=== PATIENT | male | born 1955 | race Caucasian/White ===

== ENCOUNTER 2018-06-15 19:09 | Emergency (ER) | payer BC ==
[2018-06-15] MEDS ORDERED: Sodium Chloride 0.9% 1,000 ML IV ONE (19:24)
[2018-06-15] MEDS ORDERED: diphenhydrAMINE 50 MG/ML SDV IVPUSH ONE (19:24)
[2018-06-15] MEDS ORDERED: Famotidine 20 MG/2 ML SDV IVPUSH ONE (19:24)
--- NOTE | 2018-06-15 19:32 | EDM.PDOC ---
ED HPI GENERAL MEDICAL PROBLEM - General Chief Complaint: Allergic Reaction Stated Complaint: acute allergic reaction Time Seen by Provider: 06/15/18 19:15 Source of Information: Reports: Patient History Limitations: Reports: No Limitations - History of Present Illness INITIAL COMMENTS - FREE TEXT/NARRATIVE: 62 YO WM presents to ER with allergic reaction which began just prior to arrival. Pt reports he was outside shoveling snow and when he came inside he noticed feeling warm and developing sudden onset rash which began on the back of his neck then covering his entire body. Pt sat down and had a witnessed syncopal episode which lasted approximately 30 seconds. EMS was called and when they arrived pt had an initial blood pressure of 80's/50's. Pt was transported to ER where inital blood pressure was 90's/70's. Pt alert and oriented x 4. Pt denies shortness of breath, no chest pain, no nausea/vomiting. Pt with generalized urticarial rash with associated dizziness. Pt without complaints other then feeling itchy allover. Pt with a similar reaction in the past without syncope. Pt came to ER one other time and states his symptoms resolved on their own. Pt has not followed up with any medical doctor for this condition. Pt denies any facial droop, no weakness or numbness, no headache. Onset: Sudden Location: Reports: Generalized Severity: Severe Improves with: Reports: None Worsens with: Reports: None Associated Symptoms: Reports: Rash, Syncope. 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 Denies: Shortness of Breath Cardiovascular: Reports: Blood Pressure Problem, Lightheadedness, Syncope. Denies: Chest Pain, Palpitations Endocrine: Reports: No Symptoms GI/Abdominal: Reports: No Symptoms : Reports: No Symptoms Musculoskeletal: Reports: No Symptoms Skin: Reports: Urticaria Neurological: Reports: No Symptoms, Dizziness Psychiatric: Reports: No Symptoms Hematologic/Lymphatic: Reports: No Symptoms Immunologic: Reports: No Symptoms ED EXAM GENERAL NO PERIP PULSE - Physical Exam Exam: See Below Exam Limited By: No Limitations General Appearance: Alert, WD/WN, No Apparent Distress Head: Atraumatic, Normocephalic Neck: Normal Inspection, Supple, Non-Tender, Full Range of Motion Respiratory/Chest: No Respiratory Distress, Lungs Clear, Normal Breath Sounds, No Accessory Muscle Use, Chest Non-Tender Cardiovascular: Normal Peripheral Pulses, Regular Rate, Rhythm, No Edema, No Gallop, No JVD, No Murmur, No Rub GI/Abdominal: Normal Bowel Sounds, Soft, Non-Tender, No Organomegaly, No Distention, No Abnormal Bruit, No Mass Back Exam: Normal Inspection, Full Range of Motion, NT Extremities: Normal Inspection, Normal Range of Motion, Non-Tender, Normal Capillary Refill, No Pedal Edema Neurological: Alert, Oriented, CN II-XII Intact, Normal Cognition, Normal Gait, Normal Reflexes, No Motor/Sensory Deficits Psychiatric: Normal Affect, Normal Mood Skin Exam: Erythema, Other (generalized urticarial rash) Lymphatic: No Adenopathy EKG INTERPRETATION EKG Date: 06/15/18 Time: 19:25 Rhythm: NSR Rate (Beats/Min): 83 [place]: Normal P-Wave: Present QRS: Normal ST-T: Normal QT: Normal Comparison: NA - No Prior EKG Course - Vital Signs Last Recorded V/S: Last Vital Signs Temp 35.4 C 06/15/18 19:21 Pulse 80 06/15/18 19:21 Resp 13 06/15/18 19:21 BP 99/72 06/15/18 19:21 Pulse Ox 92 L 06/15/18 19:21 - Orders/Labs/Meds Orders: Active Orders 24 hr Category Date Time Status EKG Documentation Completion [RC] ASDIRECTED Care 06/15/18 19:25 Active Peripheral IV Care [RC] . DIRECTED Care 06/15/18 19:25 Active Sodium Chloride 0.9% [Saline Flush] Med 06/15/18 19:24 Active 10 ml FLUSH Q8HR PRN methylPREDNISolone Sod Succ [Solu-MEDROL] Med 06/16/18 19:25 Once 125 mg IVPUSH ONETIME ONE Peripheral IV Insertion Adult [OM.PC] Routine Oth 06/15/18 19:24 Ordered EKG 12 Lead [EK] Routine Ther 06/15/18 19:24 Ordered Medication Orders Methylprednisolone Sodium Succinate (Solu-Medrol) 125 mg IVPUSH ONETIME ONE Stop: 06/16/18 19:26 Sodium Chloride (Saline Flush) 10 ml FLUSH Q8HR PRN PRN Reason: keep vein open Labs: Laboratory Tests 06/15/18 06/15/18 Range/Units 19:25 19:25 WBC 14.17 H (5.00-10.00) 10^3/uL RBC 5.81 (4.50-6.00) 10^6/uL Hgb 17.6 H (13.0-17.0) g/dL Hct 51.6 (40.0-52.0) % MCV 88.8 (82.0-92.0) fL MCH 30.3 (27.0-31.0) pg MCHC 34.1 (32.0-36.0) g/dL RDW 13.6 (11.5-14.5) % Plt Count 320 (150-400) 10^3/uL MPV 9.2 (7.4-10.4) fL Immature Gran % (Auto) 0.2 (0.0-5.0) % Neut % (Auto) 44.2 L (50.0-70.0) % Lymph % (Auto) 50.2 H (20.0-40.0) % Granite % (Auto) 4.4 (2.0-8.0) % Eos % (Auto) 0.6 L (1.0-3.0) % Baso % (Auto) 0.4 (0.0-1.0) % Immature Gran # (Auto) 0.03 (0.00-0.50) 10^3/uL Neut # (Auto) 6.27 (2.50-7.00) 10^3/uL Lymph # (Auto) 7.11 H (1.00-4.00) 10^3/uL Granite # (Auto) 0.62 (0.10-0.80) 10^3/uL Eos # (Auto) 0.09 L (0.10-0.30) 10^3/uL Baso # (Auto) 0.05 (0.00-0.10) 10^3/uL Atypical Lymphocytes Few Sodium 145 (136-145) mmol/L Potassium 3.9 (3.3-5.3) mmol/L Chloride 103 (98-115) mmol/L Carbon Dioxide 24.5 (21.0-32.0) mmol/L Anion Gap 21.4 H (5-15) mmol/L BUN 18 (6-25) mg/dL Creatinine 1.09 (0.51-1.17) mg/dL Est Cr Clr Drug Dosing 66.24 mL/min Estimated GFR (MDRD) > 60 mL/min Glucose 185 H (75 - 99) mg/dL Calcium 9.0 (8.7-10.3) mg/dL Creatine Kinase 164 (26-276) U/L CK-MB (CK-2) 2.10 (0.00-4.30) ng/mL Troponin I < 0.04 (0.00-0.070) ng/mL Meds: Medications Generic Name Dose Route Start Last Admin Trade Name Freq PRN Reason Stop Dose Admin Methylprednisolone Sodium Succinate 125 mg 06/16/18 19:25 Solu-Medrol IVPUSH 06/16/18 19:26 ONETIME ONE Sodium Chloride 10 ml 06/15/18 19:24 Saline Flush FLUSH Q8HR PRN keep vein open Discontinued Medications Generic Name Dose Route Start Last Admin Trade Name Freq PRN Reason Stop Dose Admin Diphenhydramine HCl 50 mg 06/15/18 19:24 Benadryl IVPUSH 06/15/18 19:25 ONETIME ONE Famotidine 20 mg 06/15/18 19:24 Pepcid IVPUSH 06/15/18 19:25 ONETIME ONE Sodium Chloride 1,000 mls @ 999 mls/hr 06/15/18 19:24 Normal Saline IV 06/15/18 20:24 .BOLUS ONE Methylprednisolone Sodium Succinate Confirm 06/15/18 20:10 Solu-Medrol Administered 06/15/18 20:11 Dose 125 mg .ROUTE .STK-MED ONE - Re-Assessments/Exams Free Text/Narrative Re-Assessment/Exam: 06/15/18 20:42 1. discussed hospitalization for observation with patient due to episode of hypotension and syncope- patient and family refused. I recommended if reaction reoccurs pt should use epi-pen. Pt verbalized understanding and is comfortable with the use of the epi-pen 06/15/18 20:43 rash resolved bp- 110/67 p- 86 SaO2- 97% RA pt in NAD- resting comfortably Departure - Departure Time of Disposition: 20:45 Disposition: Home, Self-Care 01 Condition: Good Clinical Impression: Hives of unknown origin Acute allergic reaction Qualifiers: Encounter type: initial encounter Qualified Code(s): T78.40XA - Allergy, unspecified, initial encounter - Discharge Information Prescriptions: EPINEPHrine [Epipen] 0.3 mg IM ASDIRECTED PRN #1 pen PRN Reason: Allergies Famotidine [Pepcid] 20 mg PO BID #20 tab predniSONE [Prednisone] 50 mg PO DAILY #5 tablet Instructions: Anaphylactic Reaction, Adult, Allergies, Adult, Allergy Skin Testing, Epinephrine Injection Referrals: PCP,Unknown [Primary Care Provider] - Forms: ED Department Discharge Additional Instructions: 1. discharge home 2. epi pen if reaction reoccurs 3. prednisone 50mg PO QD x 5 days 4. benadryl 50mg PO Q6 5. pepcid 20mg PO BID 6. follow up in clinic next 24-48 hours for recheck and immunology/delimer appointment 7. return to ER for worsening symptoms - My Orders Last 24 Hours: My Active Orders 06/15/18 19:24 Sodium Chloride 0.9% [Saline Flush] 10 ml FLUSH Q8HR PRN Peripheral IV Insertion Adult [OM.PC] Routine EKG 12 Lead [EK] Routine 06/15/18 19:25 EKG Documentation Completion [RC] ASDIRECTED Peripheral IV Care [RC] . DIRECTED 06/16/18 19:25 methylPREDNISolone Sod Succ [Solu-MEDROL] 125 mg IVPUSH ONETIME ONE - Assessment/Plan Last 24 Hours: My Active Orders 06/15/18 19:24 Sodium Chloride 0.9% [Saline Flush] 10 ml FLUSH Q8HR PRN Peripheral IV Insertion Adult [OM.PC] Routine EKG 12 Lead [EK] Routine 06/15/18 19:25 EKG Documentation Completion [RC] ASDIRECTED Peripheral IV Care [RC] . DIRECTED 06/16/18 19:25 methylPREDNISolone Sod Succ [Solu-MEDROL] 125 mg IVPUSH ONETIME ONE Assessment:: 1. acute allergic reaction Plan: 1. discharge home 2. epi pen if reaction reoccurs 3. prednisone 50mg PO QD x 5 days 4. benadryl 50mg PO Q6 5. pepcid 20mg PO BID 6. follow up in clinic next 24-48 hours for recheck and immunology/delimer appointment 7. return to ER for worsening symptoms
[2018-06-15] MEDS: Sodium Chloride 0.9% 10 ML Syringe FLUSH PRN ×2 (19:50→20:00)
[2018-06-15 20:06] LABS: ANION GAP 21.4 mmol/L (5-15); CHLORIDE,CL 103 mmol/L (98-115); SODIUM,NA 145 mmol/L (136-145)
[2018-06-15] MEDS ORDERED: methylPREDNISolone Sodium Succinate 125 MG/2 ML SDV ONE (20:10)
[2018-06-15] MEDS ORDERED: predniSONE 20 MG Tab PO ONE (20:48)
[2018-06-15] MEDS ORDERED: Famotidine 20 MG Tab PO ONE (20:48)
[2018-06-16] MEDS ORDERED: methylPREDNISolone Sodium Succinate 125 MG/2 ML SDV IVPUSH ONE (19:25)
== END 2018-06-15 21:10 | disposition home or self-care (01) ==
LOC: KA.ED 19:09
DX: L50.0 Allergic urticaria (principal); T78.40XA Allergy, unspecified, initial encounter; Z88.0 Allergy status to penicillin; Z79.899 Other long term (current) drug therapy
CPT/HCPCS: 36415; 80048; 82550; 82553; 84484; 85025; 93005; 96361; 96374; 96375; 99284; A9270-GY; J1200; J2930; J3490; J7030

== ENCOUNTER 2023-09-11 21:36 | Emergency (ER) | payer BC, MEDICARE ==
[2023-09-11] MEDS: Sodium Chloride 0.9% 10 ML Syringe FLUSH PRN (22:04)
[2023-09-11 22:23] LABS: BASOPHILS ABSOLUTE AUTO 0.03 10^3/uL (0.00-0.10); BASOPHILS PERCENT AUTO 0.3 % (0.0-1.0); EOSINOPHILS ABSOLUTE AUTO 0.07 10^3/uL (0.10-0.30); EOSINOPHILS PERCENT AUTO 0.6 % (1.0-3.0); HEMATOCRIT 44.6 % (40.0-52.0); HEMOGLOBIN 15.5 g/dL (13.0-17.0); IMMATURE GRAN ABSOLUTE AUTO 0.04 10^3/uL (0.00-0.50); IMMATURE GRAN PERCENT AUTO 0.4 % (0.0-5.0); LYMPHOCYTES PERCENT AUTO 31.7 % (20.0-40.0); MEAN CORPUSCULAR HEMOGLOBIN 30.9 pg (27.0-31.0); MEAN CORPUSCULAR HGB CONC 34.8 g/dL (32.0-36.0); MEAN CORPUSCULAR VOLUME 88.8 fL (82.0-92.0); MEAN PLATELET VOLUME 9.3 fL (7.4-10.4); MONOCYTES ABSOLUTE AUTO 1.41 10^3/uL (0.10-0.80); MONOCYTES PERCENT AUTO 12.8 % (2.0-8.0); NEUTROPHILS ABSOLUTE AUTO 5.98 10^3/uL (2.50-7.00); NEUTROPHILS PERCENT AUTO 54.2 % (50.0-70.0); PLATELET COUNT,PLT 299 10^3/uL (150-400); RED BLOOD CELL COUNT 5.02 10^6/uL (4.50-6.00); WHITE BLOOD CELL COUNT,WBC 11.03 10^3/uL (5.00-10.00)
[2023-09-11 22:45] LABS: ALBUMIN 3.08 g/dL (3.40-5.00); ANION GAP 12.9 mmol/L (5-15); BILIRUBIN TOTAL 0.3 mg/dL (0.2-1.0); CALCIUM 8.5 mg/dL (8.7-10.3); CARBON DIOXIDE,CO2 27.3 mmol/L (21.0-32.0); CREATININE 0.92 mg/dL (0.51-1.17); EST CRCL DRUG DOSING (CG) 70.85 mL/min; POTASSIUM,K 4.2 mmol/L (3.5-5.1); PROTEIN TOTAL,TP 6.6 g/dL (6.4-8.2)
[2023-09-12 05:47] VITALS: BP 122/74; PULSE 83
== END 2023-09-11 23:35 | disposition home or self-care (01) ==
LOC: KA.ED 21:36
DX: S29.011A Strain of muscle and tendon of front wall of thorax, initial encounter (principal); Z88.0 Allergy status to penicillin; Z91.013 Allergy to seafood; Z91.048 Other nonmedicinal substance allergy status; Z79.899 Other long term (current) drug therapy; X50.1XXA Overexertion from prolonged static or awkward postures, initial encounter; Y93.89 Activity, other specified
CPT/HCPCS: 36415; 71046; 80053; 83880; 84484; 85025; 85379; 93010; 99284; 99285; J3490